=== PATIENT | female | born 1990 | race African-American/Black ===

== ENCOUNTER 2018-04-13 04:01 | Inpatient (IN) ==
[2018-04-13] MEDS ORDERED: BUTORPHANOL 2 MG/ML VIAL IM ONE (04:52)
[2018-04-13] MEDS ORDERED: PROMETHAZINE 25 MG/1 ML VIAL IM ONE (04:53)
[2018-04-13 05:02] LABS: Apearance,Urine Slightly Hazy (Clear); Bacteria,Urine Occasional /HPF (Few); Bilirubin,Urine Negative (Negative); Blood, Urine Negative (Negative); Glucose,Urine (UA) Negative (Negative); Ketones,Urine 20 mg/dL (Negative); Mucus,Urine Occasional /LPF (Occasional); Nitrite,Urine Negative (Negative); Protein,Urine Negative; RBC,Urine 1 /HPF (0-4); Squamous Epithelial Cell,Urine Occasional /HPF (0-10); Urine Color Yellow (Yellow); Urine Specific Gravity 1.008 (1.001-1.035); Urine Urobilinogen < 2.0 EU/DL (0.2-1.0); WBC,Urine 4 /HPF (0-6)
[2018-04-13 05:12] LABS: Basophils % 0.1 % (0.0-0.8); Eosinophils % 0.1 % (0.00-10.9); Hematocrit 35.5 VOL% (35.7-47.0); Hemoglobin 10.8 GM/DL (12.0-16.0); Immature Granulocytes % 0.7 %; Immature Granulocytes Absolute 0.06 #; Lymphocytes # 1.1 10*3/uL (1.4-4.0); Lymphocytes % 13.3 % (21.3-54.2); Mean Corpuscular HGB Conc 30.4 GM/DL (32-36); Mean Corpuscular Hemoglobin 23 PG (27-34); Mean Corpuscular Volume 75.7 FL (87-102); Mean Platelet Volume 11.9 FL (9.6-12.0); Monocytes # 0.5 10*3/uL (0.11-0.8); Monocytes % 5.9 % (1.7-12.7); Neutrophils # 6.5 10*3/uL (1.4-7.4); Neutrophils % 79.9 % (38.7-73.9); Platelet Count 176 T/CUMM (130-400); Red Blood Count 4.69 MC/CUMM (3.8-5.5); Red Cell Distribution Width 16.5 % (9.3-17.3); White Blood Count 8.2 T/CUMM (4-12)
[2018-04-13 05:26] LABS: INR 0.9; PT Patient Result 9.9 SECS; Partial Thromboplastin Time 29.9 SECS (0-40)
[2018-04-13 05:36] LABS: Alanine Aminotransferase 19 U/L (13-56); Albumin 2.6 G/DL (3.4-5.0); Alkaline Phosphatase 168 U/L (45-117); Aspartate Amino Transferase 22 U/L (0-37); Bilirubin,Total < 0.39 MG/DL (0.2-1.0); Blood Urea Nitrogen 4 MG/DL (7-18); Glucose 78 MG/DL (74-106); Osmolality,Calculated 276.3 MOS/KG (273-304); Potassium 3.4 MMOL/L (3.5-5.1); Sodium 141 MMOL/L (136-145); Total Protein 7.1 G/DL (6.4-8.3)
[2018-04-13] MEDS ORDERED: MEPERIDINE 25 MG/1 ML VIAL IV PRN (08:15)
[2018-04-13] MEDS ORDERED: LACTATED RINGERS 250 ML IV ONE (08:15)
[2018-04-13] MEDS ORDERED: MEPERIDINE 50 MG/1 ML VIAL IV PRN (08:15)
[2018-04-13] MEDS ORDERED: ONDANSETRON 4 MG/2 ML VIAL IV PRN ×2 (08:15→15:24)
[2018-04-13] MEDS ORDERED: FAMOTIDINE 20 MG/2 ML VIAL IV ONE (08:22)
[2018-04-13] MEDS ORDERED: CITRIC ACID/SODIUM CITRATE 30 ML UDCUP PO ONE (08:22)
[2018-04-13] MEDS ORDERED: ePHEDrine 50 MG/ML AMP IV PRN (08:22)
[2018-04-13] MEDS ORDERED: OXYTOCIN/LR 20 UNIT/1,000 ML BAG IV SCH (08:30)
[2018-04-13] MEDS ORDERED: INFLUENZA VIRUS VACCINE 0.5 ML SYRINGE IM ONE (09:00)
[2018-04-13] MEDS ORDERED: fentaNYL 2 MCG/ROPIV 0.2% EPID 100 ML EPIDURAL ONE (09:11)
[2018-04-13] MEDS ORDERED: LACTATED RINGERS 1,000 ML IV ONE (09:37)
[2018-04-13] MEDS: LACTATED RINGERS 1,000 ML IV SCH (09:45)
[2018-04-13] MEDS ORDERED: BUTORPHANOL 2 MG/ML VIAL IV PRN (09:54)
[2018-04-13] MEDS ORDERED: OXYTOCIN/LR 30 UNIT/1,000 ML BAG IV ONE (12:00)
[2018-04-13] MEDS ORDERED: LIDOCAINE 1% 50 ML VIAL ONE (12:01)
[2018-04-13] MEDS ORDERED: METHYLERGONOVINE 0.2 MG/1 ML AMP ONE (12:02)
[2018-04-13] MEDS ORDERED: CARBOPROST TROMETHAMINE 250 MCG/ML AMP IM ONE (12:02)
[2018-04-13] MEDS ORDERED: miSOPROStol 200 MCG TABLET ONE (12:02)
[2018-04-13 14:00] LABS: Apearance,Urine CLEAR (Clear); Bilirubin,Urine Negative (Negative); Blood, Urine Negative (Negative); Glucose,Urine (UA) Negative (Negative); Ketones,Urine 80 mg/dL (Negative); Mucus,Urine Occasional /LPF (Occasional); Nitrite,Urine Negative (Negative); Protein,Urine 30 MG/DL; RBC,Urine <1 /HPF (0-4); Squamous Epithelial Cell,Urine Occasional /HPF (0-10); Urine Color Yellow (Yellow); Urine Specific Gravity 1.014 (1.001-1.035); Urine Urobilinogen < 2.0 EU/DL (0.2-1.0); WBC,Urine <1 /HPF (0-6)
[2018-04-13] MEDS ORDERED: ACETAMINOPHEN 500 MG TABLET PO SCH (15:24)
[2018-04-13] MEDS ORDERED: RHO(D) IMMUNE GLOBULIN 300 MCG SYRINGE IM ONE (15:24)
[2018-04-13] MEDS ORDERED: LANOLIN 50% CREAM 0.3 OZ TUBE TOP PRN (15:24)
[2018-04-13] MEDS ORDERED: MEASLES/MUMPS/RUBELLA VACCINE 0.5 ML VIAL SUBCUT ONE (15:24)
[2018-04-13] MEDS ORDERED: DIPH/TET/ACEL PERT BOOSTER VACCINE 0.5 ML VIAL IM ONE (15:24)
[2018-04-13] MEDS ORDERED: BISACODYL 10 MG SUPP RECTAL PRN (15:24)
[2018-04-13] MEDS ORDERED: BENZOCAINE 20%/MENTHOL 0.5% SPRAY 56 GM CAN TOP PRN (15:24)
[2018-04-13] MEDS ORDERED: HYDROCORTISONE 2.5% RECTAL CREAM 30 GM TUBE TOP PRN (15:24)
[2018-04-13] MEDS ORDERED: WITCH HAZEL PADS 100/JAR TOP PRN (15:24)
[2018-04-13] MEDS: KETOROLAC 30 MG/1 ML VIAL IV SCH ×2 (15:44→21:25)
[2018-04-13] MEDS: ACETAMINOPHEN 500 MG TABLET PO SCH (17:25)
[2018-04-13] MEDS: DOCUSATE SODIUM 100 MG CAPSULE PO SCH (21:20)
[2018-04-14] MEDS: LACTATED RINGERS 1,000 ML IV SCH ×2 (00:03→03:49)
[2018-04-14] MEDS: ACETAMINOPHEN 500 MG TABLET PO SCH ×5 (00:04→17:52)
[2018-04-14] MEDS ORDERED: KETOROLAC 60 MG/2 ML VIAL IM ONE (03:48)
[2018-04-14] MEDS: KETOROLAC 30 MG/1 ML VIAL IV SCH (03:50)
[2018-04-14 04:49] LABS: Basophils % 0.2 % (0.0-0.8); Hematocrit 28.8 VOL% (35.7-47.0); Hemoglobin 8.9 GM/DL (12.0-16.0); Immature Granulocytes % 0.8 %; Lymphocytes # 1.8 10*3/uL (1.4-4.0); Lymphocytes % 14.4 % (21.3-54.2); Mean Corpuscular HGB Conc 30.9 GM/DL (32-36); Mean Corpuscular Hemoglobin 23 PG (27-34); Mean Corpuscular Volume 73.7 FL (87-102); Mean Platelet Volume 13.5 FL (9.6-12.0); Monocytes % 8.2 % (1.7-12.7); Neutrophils # 9.4 10*3/uL (1.4-7.4); Neutrophils % 76.4 % (38.7-73.9); Platelet Count 198 T/CUMM (130-400); Red Blood Count 3.91 MC/CUMM (3.8-5.5); Red Cell Distribution Width 16.3 % (9.3-17.3); White Blood Count 12.3 T/CUMM (4-12)
[2018-04-14] MEDS: IBUPROFEN 800 MG TABLET PO SCH ×3 (06:39→21:36)
[2018-04-14] MEDS: DOCUSATE SODIUM 100 MG CAPSULE PO SCH ×2 (09:22→21:32)
[2018-04-14] MEDS ORDERED: BUTALBITAL/ACETAMIN/CAFFEINE 50-325-40 MG TABLET PO ONE (09:38)
[2018-04-14] MEDS: BUTALBITAL/ACETAMIN/CAFFEINE 50-325-40 MG TABLET PO PRN (18:15)
[2018-04-15] MEDS: ACETAMINOPHEN 500 MG TABLET PO SCH ×2 (00:26→05:05)
[2018-04-15] MEDS: IBUPROFEN 800 MG TABLET PO SCH ×2 (00:52→06:42)
[2018-04-15] MEDS: BUTALBITAL/ACETAMIN/CAFFEINE 50-325-40 MG TABLET PO PRN (01:59)
[2018-04-15 07:40] VITALS: BP 145/81
[2018-04-15] MEDS ORDERED: INFLUENZA VIRUS VACCINE 0.5 ML SYRINGE IM ONE (09:23)
== END 2018-04-15 13:25 | disposition home or self-care (01) | DRG 807 ==
LOC: N.LDOUT 04:01 → N.LD 04:03 → N.OB 15:21
PROVIDERS: ADMIT Obstetrics & Gynecology; ATTEND Obstetrics & Gynecology

== ENCOUNTER 2018-04-18 10:46 | Inpatient (IN) ==
[2018-04-18 13:07] VITALS: BP 143/56
[2018-04-18 13:24] LABS: Apearance,Urine CLOUDY (Clear); Bilirubin,Urine Negative (Negative); Blood, Urine Large mg/dL (Negative); Glucose,Urine (UA) Negative (Negative); Ketones,Urine Negative (Negative); Mucus,Urine Occasional /LPF (Occasional); Nitrite,Urine Negative (Negative); Protein,Urine 100 MG/DL; RBC,Urine 14 /HPF (0-4); Squamous Epithelial Cell,Urine Many /HPF (0-10); Urine Color Red (Yellow); Urine Specific Gravity 1.006 (1.001-1.035); Urine Urobilinogen < 2.0 EU/DL (0.2-1.0); WBC,Urine 284 /HPF (0-6)
[2018-04-18 15:57] LABS: Basophils % 0.4 % (0.0-0.8); Eosinophils # 0.1 10*3/uL (0.0-0.87); Eosinophils % 0.8 % (0.00-10.9); Hematocrit 30.6 VOL% (35.7-47.0); Hemoglobin 9.6 GM/DL (12.0-16.0); Immature Granulocytes % 1.3 %; Lymphocytes # 1.6 10*3/uL (1.4-4.0); Lymphocytes % 19.8 % (21.3-54.2); Mean Corpuscular HGB Conc 31.4 GM/DL (32-36); Mean Corpuscular Hemoglobin 23 PG (27-34); Mean Corpuscular Volume 74.6 FL (87-102); Mean Platelet Volume 12.3 FL (9.6-12.0); Monocytes # 0.5 10*3/uL (0.11-0.8); Monocytes % 6.6 % (1.7-12.7); Neutrophils # 5.7 10*3/uL (1.4-7.4); Neutrophils % 71.1 % (38.7-73.9); Platelet Count 221 T/CUMM (130-400); Red Cell Distribution Width 16.9 % (9.3-17.3); White Blood Count 7.9 T/CUMM (4-12)
[2018-04-18 16:16] LABS: Alanine Aminotransferase 35 U/L (13-56); Albumin 2.6 G/DL (3.4-5.0); Alkaline Phosphatase 110 U/L (45-117); Aspartate Amino Transferase 24 U/L (0-37); Bilirubin,Total < 0.39 MG/DL (0.2-1.0); Blood Urea Nitrogen 4 MG/DL (7-18); Calcium 8.3 MG/DL (8.5-10.1); Glucose 68 MG/DL (74-106); Osmolality,Calculated 277.1 MOS/KG (273-304); Potassium 3.3 MMOL/L (3.5-5.1); Sodium 142 MMOL/L (136-145); Total Protein 6.5 G/DL (6.4-8.3); Uric Acid 4.8 MG/DL (2.6-6.0)
[2018-04-18] MEDS ORDERED: ACETAMINOPHEN 500 MG TABLET PO PRN (16:32)
== END 2018-04-18 19:04 | disposition home or self-care (01) | DRG 776 ==
LOC: N.ED 10:46 → N.LD 14:40 → N.EDINP 15:01 → N.LD 15:11
PROVIDERS: ADMIT Obstetrics & Gynecology; ATTEND Obstetrics & Gynecology